=== PATIENT | male | born 1940 | race Caucasian/White ===

== ENCOUNTER 2017-06-29 10:11 | Emergency (ER) | payer MEDICARE ==
[~2017-06-29] VITALS: Ht 165.1 cm; Wt 99.3 kg
--- NOTE | ~2017-06-29 | CR252 ---
[facility] A Service of [facility] & [facility] RADIOLOGY TEXT RESULTS PATIENT: RICHA GROSSMAN LOCATION: [facility] : 41 UNIT #: [id number] AGE: [address]: Meg Moore SEX: M ORDER DR: [id number] [facility] [address] [place], [place] [address] [id number] E MR#: [id number] Acc #: [id number] NAME: RICHA GROSSMAN. : 1940 SEX: M STUDY DATE/TIME: 06/29/2017 12:47 UNIT: [facility] ROOM: STUDY DESCRIPTION: CR Tibia and Fibula 2 Views Lt Attending Physician: Meg Moore Pa-C Ordering Physician: Ed Doc Rupali Melendez Primary Care Physician: Delilah Carrera M.D. MEDICAL IMAGING REPORT This report is preliminary unless electronic signature is present EXAM Left lower leg HISTORY 76-year-old male with history of multiple falls. Complains of left lower leg pain for 2 months. FINDINGS Routine views of the left lower leg demonstrates no fracture or dislocation. Soft tissue calcification seen in the proximal lower leg, nonspecific but are probably vascular in nature. Bone mineralization appears normal. Knee and ankle joint unremarkable. IMPRESSION 1. No acute fracture deformity. 2. Calcifications proximal lower leg probably are vascular in nature. Dictated by... Peng Chandler M.D. THIS IS AN ELECTRONICALLY VERIFIED REPORT Peng Chandler M.D. at 06/29/2017 5:12 PM ARACELIS/theo TD: 06/29/2017 15:29 JOB #: [id number] MEDICAL IMAGING REPORT Page 1 of 1 COPY
--- NOTE | ~2017-06-29 | CR150 ---
[facility] A Service of [facility] & [facility] RADIOLOGY TEXT RESULTS PATIENT: RICHA GROSSMAN LOCATION: [facility] : 41 UNIT #: [id number] AGE: [address]: Meg Moore SEX: M ORDER DR: [id number] [facility] [address] [place], [place] [address] [id number] E MR#: [id number] Acc #: [id number] NAME: RICHA GROSSMAN. : 1940 SEX: M STUDY DATE/TIME: 06/29/2017 12:49 UNIT: [facility] ROOM: STUDY DESCRIPTION: CR Hip Min 2 Views Lt Attending Physician: Meg Moore Pa-C Ordering Physician: Ed Rajesh Melendez M.D. Primary Care Physician: Delilah Carrera M.D. MEDICAL IMAGING REPORT This report is preliminary unless electronic signature is present EXAM Left hip 2 views HISTORY Left hip pain. History of multiple falls. FINDINGS AP pelvis and frog lateral view of the left hip demonstrates no fracture deformity. No lytic or blastic lesions. Mild degenerative change lower lumbar spine. Minimal degenerative change in the hips. Arterial vascular calcifications noted. IMPRESSION Minimal degenerative change of left hip as well as minimal enthesopathic changes about the left greater trochanter. No acute fracture deformity. Dictated by... Peng Chandler M.D. THIS IS AN ELECTRONICALLY VERIFIED REPORT Peng Chandler M.D. at 06/29/2017 5:12 PM ARACELIS/juve TD: 06/29/2017 15:41 JOB #: [id number] MEDICAL IMAGING REPORT Page 1 of 1 COPY
--- NOTE | ~2017-06-29 | CR106 ---
[facility] A Service of [facility] & [facility] RADIOLOGY TEXT RESULTS PATIENT: RICHA GROSSMAN LOCATION: [facility] : 41 UNIT #: [id number] AGE: [address]: Meg Moore SEX: M ORDER DR: [id number] [facility] [address] [place], [place] [address] [id number] E MR#: [id number] Acc #: [id number] NAME: RICHA GROSSMAN. : 1940 SEX: M STUDY DATE/TIME: 06/29/2017 12:48 UNIT: [facility] ROOM: STUDY DESCRIPTION: CR Femur 2 Views Lt Attending Physician: Meg Moore Pa-C Ordering Physician: Ed Doc Rupali Melendez Primary Care Physician: Delilah Carrera M.D. MEDICAL IMAGING REPORT This report is preliminary unless electronic signature is present EXAM Left femur to 2 views HISTORY History of multiple falls. Complains of thigh and femur pain for 2 months. FINDINGS Routine views of the left femur demonstrates no fracture or deformity. No lytic or blastic lesions. Extensive arterial vascular calcifications noted. Knee and hip joint unremarkable for age. IMPRESSION No acute findings. Dictated by... Peng Chandler M.D. THIS IS AN ELECTRONICALLY VERIFIED REPORT Peng Chandler M.D. at 06/29/2017 5:12 PM ARACELIS/yi TD: 06/29/2017 15:31 JOB #: [id number] MEDICAL IMAGING REPORT Page 1 of 1 COPY
[~2017-06-29 10:11] MED LIST: ACTOS PO; ADVAIR 2501 DISK W/D PO; ALPHAGAN P10 ML OU; AMARYL PO; AMBIEN CR PO; AMBIEN PO; ANTIVERT PO; ASPIRIN325 M1 PO; ASPIRINEC PO; BENAZEPRIL PO; CARDIZEM CD PO; CARDIZEM CD180 M1 PO; COMBIVENT INH14.7 GM INH; COREG PO; DARVOCET-N 1001 TAB PO; FLEXERIL10 MG PO; FLOMAX0.4 M1 PO; FLOMAX0.4 MG PO; IMDUR PO; KEFLEX PO; LASIX PO; LIPITOR PO; LOTENSIN PO; LUMIGAN EYE GTTS OU; METFORMIN HCL500 M1 PO; METFORMIN PO; NEXIUM PO; OMEGA 3 FISH OI1 CAP PO; PRAVACHOL PO; PRILOSEC PO; PRILOSEC20 MG PO; TYLENOL ARTHRITIS PO; [UNRECOGNIZED DRUG - OTHER]; [UNRECOGNIZED DRUG - OTHER] PO
== END 2017-06-29 14:35 | disposition home or self-care (01) ==
LOC: CED 10:11
DX: M16.12 Unilateral primary osteoarthritis, left hip (principal); I11.0 Hypertensive heart disease with heart failure; I50.9 Heart failure, unspecified; E11.9 Type 2 diabetes mellitus without complications; J45.909 Unspecified asthma, uncomplicated; Z88.0 Allergy status to penicillin
CPT/HCPCS: 73502; 73552; 73590; 99283